=== PATIENT | female | born 1945 | race African-American/Black ===

== ENCOUNTER 2017-01-07 19:19 | Inpatient (IN) | payer MEDICARE, OTHER ==
[~2017-01-07] VITALS: Ht 160 cm; Wt 49.9 kg
[~2017-01-07 19:19] MED LIST: ALBU6.7H2 IH; AMLO10TA80 PO; BENA20TA77 PO; CITA20TA19 PO; FLUT1DIS3 IH; GLYPIZIDE PO; HYDR-519 PO; HYDROCHLOROTHIAZIDE PO; KEPPRA PO; LIP40 PO; Lactulose PO; METF10002 PO; MOME13HF2 INH; OXYC80TA40 PO; PROIN3 IH; TIOT18CA3 IH; [UNRECOGNIZED DRUG - REMARK] PO
[2017-01-07] MEDS ORDERED: MORPHINE SULFATE 4 MG/ML CPJ (NOT FOR IM USE) IV STA (20:52)
[2017-01-07] MEDS ORDERED: ONDANSETRON HCL 4MG/2ML VIAL IV STA (20:52)
[2017-01-07 21:16] LABS: HEMATOCRIT. 36.5 % (36.0-48.0); HEMOGLOBIN. 11.7 g/dL (12.0-16.0); MEAN CORPUSCULAR HEMOGLOBIN 25.3 pg (28.0-32.0); MEAN CORPUSCULAR VOLUME 79.2 fL (81.0-99.0); MEAN PLATELET VOLUME 7.7 fl (7.4-10.4); PLATELET 193 x1000/uL (130-400); RED CELL DISTRIBUTION WIDTH 14.7 % (11.6-14.6)
[2017-01-07 21:24] LABS: INR 1.1; PROTHROMBIN TIME 10.9 sec (9.4-11.6)
[2017-01-07 21:27] LABS: CARBON DIOXIDE 24 mEq/L (21-32); CHLORIDE 101 mEq/L (98-107)
[2017-01-07 21:33] LABS: TROPONIN I < 0.02 ng/mL (0.00-0.04)
[2017-01-07 22:20] LABS: PLATELET ESTIMATE NORMAL
[2017-01-07] MEDS ORDERED: KETOROLAC 15MG/ML VIAL IV ONE (23:00)
[2017-01-07] MEDS ORDERED: LORAZEPAM 2MG/ML CPJ IV ONE (23:00)
[2017-01-08 01:43] LABS: CLARITY URINE CLEAR (CLEAR); COLOR URINE YELLOW (YELLOW); GLUCOSE URINE NEGATIVE (NEGATIVE); KETONES URINE NEGATIVE (NEGATIVE); LEUKOCYTE ESTERASE URINE NEGATIVE (NEGATIVE); NITRITE URINE NEGATIVE (NEGATIVE); OCCULT BLOOD URINE NEGATIVE (NEGATIVE); PH URINE 5.5 (4.5-8.0); PROTEIN URINE NEGATIVE (NEGATIVE); SPECIFIC GRAVITY URINE 1.015 (1.005-1.030); UROBILINOGEN URINE 0.2 E.U./dL (0.2-1.0)
[2017-01-08 03:40] VITALS: BP 179/79
[2017-01-08] MEDS ORDERED: ACETAMINOPHEN 650MG/20.3ML UDC PO PRN ×2 (05:30→06:30)
[2017-01-08] MEDS ORDERED: CLONIDINE 0.1MG TABLET PO PRN (05:30)
[2017-01-08] MEDS ORDERED: DEXTROSE 50% WATER 50ML SYRINGE IV PRN (05:45)
[2017-01-08 06:00] VITALS: BP 179/79
[2017-01-08] MEDS: BLOOD SUGAR DIAGNOSTIC STRIP TEST SCH ×4 (06:44→21:10)
[2017-01-08 08:00] VITALS: BP 102/62
[2017-01-08] MEDS ORDERED: KEPPRA 500 MG PO SCH (09:00)
[2017-01-08] MEDS: BENAZEPRIL 20MG TABLET PO SCH (09:00)
[2017-01-08] MEDS ORDERED: MEDICATION NOT ON FORMULARY EA (Fluticasone/Salmeterol (Advair 250-50 Diskus) 1 DISK) IH SCH (09:00)
[2017-01-08] MEDS: AMLODIPINE 10MG TABLET PO SCH (09:00)
[2017-01-08] MEDS: BUDESONIDE 0.5MG/2ML NEB HHN SCH (09:03)
[2017-01-08] MEDS: ACETAMINOPHEN 650MG/20.3ML UDC PO PRN ×3 (09:22→23:37)
[2017-01-08] MEDS: LEVETIRACETAM 500MG TABLET PO SCH ×2 (09:24→17:58)
[2017-01-08] MEDS: METFORMIN HCL 500MG TABLET PO SCH ×2 (09:24→17:58)
[2017-01-08] MEDS: CITALOPRAM HYDROBROMIDE 20MG TABLET PO SCH (09:24)
[2017-01-08] MEDS: ENOXAPARIN 40MG/0.4ML SYR SUBCUT SCH (09:25)
[2017-01-08 12:00] VITALS: BP 100/61
[2017-01-08] MEDS: INSULIN LISPRO 100 UNITS/ML SUBCUT SCH ×3 (12:15→21:00)
[2017-01-08] MEDS ORDERED: FILGRASTIM 300 MCG/ML VIAL SUBCUT NR (14:00)
[2017-01-08 16:00] VITALS: BP 124/66
[2017-01-08 20:00] VITALS: BP 153/77
[2017-01-08] MEDS: ATORVASTATIN CALCIUM 40MG TABLET PO SCH (21:06)
[2017-01-08] MEDS: HYDROCODONE/ACETAMINOPHEN 10/325MG TABLET PO PRN (23:45)
[2017-01-09] VITALS: BP 136/76
[2017-01-09] LABS: *AMPHETAMINES SCREEN URINE NEGATIVE (NEGATIVE); *BARBITURATES SCREEN URINE NEGATIVE (NEGATIVE); *BENZODIAZEPINES SCREEN URINE NEGATIVE (NEGATIVE); *COCAINE SCREEN URINE PRESUMTIVE POSITIVE (NEGATIVE); CANNABINOID URINE SCREEN PRESUMTIVE POSITIVE (NEGATIVE); METHADONE URINE SCREEN NEGATIVE (NEGATIVE); OPIATES URINE SCREEN PRESUMTIVE POSITIVE (NEGATIVE); PHENCYCLIDINE URINE SCREEN NEGATIVE (NEGATIVE)
[2017-01-09] MEDS: ALBUTEROL (0.083%) 2.5MG/3ML NEB HHN SCH ×4 (03:08→20:49)
[2017-01-09 04:00] VITALS: BP 131/102
[2017-01-09 06:27] LABS: BASOPHILS % 0.3 % (0.0-2.0); EOSINOPHILS % 0.1 % (0.0-5.0); HEMATOCRIT. 29.8 % (36.0-48.0); HEMOGLOBIN. 9.6 g/dL (12.0-16.0); LYMPHOCYTES % 11.3 % (20.0-50.0); MEAN CORPUSCULAR HEMOGLOBIN 25.2 pg (28.0-32.0); MEAN CORPUSCULAR VOLUME 78.3 fL (81.0-99.0); MEAN PLATELET VOLUME 8.3 fl (7.4-10.4); MONOCYTES % 8.4 % (2.0-8.0); NEUTROPHILS % 79.9 % (40.0-76.0); PLATELET 168 x1000/uL (130-400); RED CELL DISTRIBUTION WIDTH 14.3 % (11.6-14.6)
[2017-01-09] MEDS: METFORMIN HCL 500MG TABLET PO SCH ×2 (06:36→17:56)
[2017-01-09] MEDS: BLOOD SUGAR DIAGNOSTIC STRIP TEST SCH ×4 (06:39→20:11)
[2017-01-09] MEDS: INSULIN LISPRO 100 UNITS/ML SUBCUT SCH ×4 (06:40→20:11)
[2017-01-09 07:13] LABS: CARBON DIOXIDE 26 mEq/L (21-32); CHLORIDE 99 mEq/L (98-107); CREATINE KINASE 144 IU/L (26-192); CREATINE KINASE MB FRACTION 1.2 ng/mL (0.5-3.6); HDL CHOLESTEROL 64 mg/dL (40-59); LDL CHOLESTEROL 82 mg/dL (5-100); TROPONIN I < 0.02 ng/mL (0.00-0.04)
[2017-01-09 08:00] VITALS: BP 142/73
[2017-01-09] MEDS: LEVETIRACETAM 500MG TABLET PO SCH ×2 (08:38→17:56)
[2017-01-09] MEDS: ENOXAPARIN 40MG/0.4ML SYR SUBCUT SCH (08:38)
[2017-01-09] MEDS: CITALOPRAM HYDROBROMIDE 20MG TABLET PO SCH (08:38)
[2017-01-09] MEDS: HYDROCODONE/ACETAMINOPHEN 10/325MG TABLET PO PRN ×2 (08:39→20:10)
[2017-01-09] MEDS: AMLODIPINE 10MG TABLET PO SCH (08:40)
[2017-01-09] MEDS: BENAZEPRIL 20MG TABLET PO SCH (08:40)
[2017-01-09 11:41] LABS: HEPATITIS B SURFACE ANTIGEN NEGATIVE
[2017-01-09 12:00] VITALS: BP 136/72
[2017-01-09 12:09] LABS: HEPATITIS B CORE AB IGM NEGATIVE
[2017-01-09 12:11] LABS: HEPATITIS A AB IGM NEGATIVE (NEGATIVE)
[2017-01-09] MEDS ORDERED: IOHEXOL-350 100 ML BOTTLE ONE (12:18)
[2017-01-09] MEDS: LEVOTHYROXINE SODIUM 50MCG TABLET PO SCH (13:00)
[2017-01-09 16:00] VITALS: BP 127/65
[2017-01-09] MEDS: LOSARTAN POTASSIUM 25 MG TABLET PO SCH (17:56)
[2017-01-09 20:00] VITALS: BP 112/61
[2017-01-09] MEDS: ATORVASTATIN CALCIUM 40MG TABLET PO SCH (20:06)
[2017-01-09] MEDS: BUDESONIDE 0.5MG/2ML NEB HHN SCH (20:50)
[2017-01-10] VITALS: BP 118/76
[2017-01-10] MEDS: ALBUTEROL (0.083%) 2.5MG/3ML NEB HHN SCH ×4 (02:00→21:15)
[2017-01-10 04:00] VITALS: BP 113/57
[2017-01-10] MEDS: LEVOTHYROXINE SODIUM 50MCG TABLET PO SCH (06:26)
[2017-01-10] MEDS: METFORMIN HCL 500MG TABLET PO SCH ×2 (06:26→17:44)
[2017-01-10] MEDS: BLOOD SUGAR DIAGNOSTIC STRIP TEST SCH ×4 (06:28→20:42)
[2017-01-10] MEDS: INSULIN LISPRO 100 UNITS/ML SUBCUT SCH ×4 (06:29→20:42)
[2017-01-10 07:47] LABS: HEMATOCRIT 27.4 % (36.0-48.0); HEMOGLOBIN 8.6 g/dL (12.0-16.0); MEAN CORPUSCULAR HEMOGLOBIN 24.8 pg (28.0-32.0); MEAN CORPUSCULAR VOLUME 78.8 fL (81.0-99.0); PLATELET 177 x1000/uL (130-400); RED BLOOD CELL COUNT 3.48 mill/uL (4.2-5.4); RED CELL DISTRIBUTION WIDTH 14.5 % (11.6-14.6)
[2017-01-10] MEDS: BUDESONIDE 0.5MG/2ML NEB HHN SCH (07:59)
[2017-01-10 08:00] VITALS: BP 120/55
[2017-01-10 08:16] LABS: CARBON DIOXIDE 27 mEq/L (21-32); CHLORIDE 98 mEq/L (98-107)
[2017-01-10] MEDS: LOSARTAN POTASSIUM 25 MG TABLET PO SCH (08:31)
[2017-01-10] MEDS: AMLODIPINE 10MG TABLET PO SCH (08:41)
[2017-01-10] MEDS: LEVETIRACETAM 500MG TABLET PO SCH ×2 (08:41→17:44)
[2017-01-10] MEDS: BENAZEPRIL 20MG TABLET PO SCH (08:41)
[2017-01-10] MEDS: CITALOPRAM HYDROBROMIDE 20MG TABLET PO SCH (08:41)
[2017-01-10] MEDS: HYDROCODONE/ACETAMINOPHEN 10/325MG TABLET PO PRN (08:42)
[2017-01-10 12:00] VITALS: BP 116/59
[2017-01-10] MEDS: MORPHINE SULFATE 4 MG/ML CPJ (NOT FOR IM USE) IV PRN ×3 (12:49→22:41)
[2017-01-10] MEDS: ENOXAPARIN 40MG/0.4ML SYR SUBCUT SCH ×2 (12:49→17:44)
[2017-01-10 14:38] LABS: T4 FREE 0.44 ng/dL (0.76-1.46)
[2017-01-10 16:00] VITALS: BP 113/55
[2017-01-10 20:00] VITALS: BP 135/62
[2017-01-10] MEDS: ATORVASTATIN CALCIUM 40MG TABLET PO SCH (20:39)
[2017-01-11] VITALS: BP 102/60
[2017-01-11 04:00] VITALS: BP 113/59
[2017-01-11] MEDS: MORPHINE SULFATE 4 MG/ML CPJ (NOT FOR IM USE) IV PRN ×2 (04:14→22:29)
[2017-01-11] MEDS: INSULIN LISPRO 100 UNITS/ML SUBCUT SCH ×4 (06:01→21:00)
[2017-01-11] MEDS: BLOOD SUGAR DIAGNOSTIC STRIP TEST SCH ×4 (06:01→20:59)
[2017-01-11] MEDS: LEVOTHYROXINE SODIUM 50MCG TABLET PO SCH (06:02)
[2017-01-11] MEDS: METFORMIN HCL 500MG TABLET PO SCH ×2 (06:33→18:35)
[2017-01-11 06:45] LABS: HEMATOCRIT 28.9 % (36.0-48.0); HEMOGLOBIN 9.2 g/dL (12.0-16.0); MEAN CORPUSCULAR HEMOGLOBIN 25.1 pg (28.0-32.0); MEAN CORPUSCULAR VOLUME 78.7 fL (81.0-99.0); PLATELET 184 x1000/uL (130-400); RED BLOOD CELL COUNT 3.67 mill/uL (4.2-5.4); RED CELL DISTRIBUTION WIDTH 14.5 % (11.6-14.6)
[2017-01-11] MEDS: ALBUTEROL (0.083%) 2.5MG/3ML NEB HHN SCH ×3 (08:00→20:24)
[2017-01-11 08:26] LABS: CARBON DIOXIDE 29 mEq/L (21-32); CHLORIDE 99 mEq/L (98-107)
[2017-01-11] MEDS ORDERED: PROPOFOL 200MG/20ML VIAL IV ONE (08:32)
[2017-01-11] MEDS ORDERED: LIDOCAINE HCL 1% 20ML VIAL (Pyxis) INJ ONE (08:33)
[2017-01-11] MEDS ORDERED: MIDAZOLAM HCL 2 MG/2 ML VIAL ONE (08:33)
[2017-01-11] MEDS ORDERED: FENTANYL CITRATE/PF 50MCG/ML 2ML VIAL ONE (08:33)
[2017-01-11] MEDS: LOSARTAN POTASSIUM 25 MG TABLET PO SCH (09:00)
[2017-01-11] MEDS: BUDESONIDE 0.5MG/2ML NEB HHN SCH (09:00)
[2017-01-11] MEDS: BENAZEPRIL 20MG TABLET PO SCH (09:00)
[2017-01-11] MEDS ORDERED: CLINDAMYCIN 900 MG in DEXTROSE 5% WATER 50 ML IV ONE (09:00)
[2017-01-11] MEDS: AMLODIPINE 10MG TABLET PO SCH (09:00)
[2017-01-11] MEDS: CITALOPRAM HYDROBROMIDE 20MG TABLET PO SCH (09:00)
[2017-01-11] MEDS: LEVETIRACETAM 500MG TABLET PO SCH ×2 (09:00→17:37)
[2017-01-11] MEDS ORDERED: NORMAL SALINE 0.9% 10 ML SYR ONE (09:08)
[2017-01-11] MEDS ORDERED: BACITRACIN ZINC 15GM TUBE TOP ONE (09:08)
[2017-01-11] MEDS ORDERED: VANCOMYCIN HCL 500 MG/VIAL ONE (09:08)
[2017-01-11] MEDS ORDERED: BACITRACIN 50,000 UNITS/VIAL ONE (09:08)
[2017-01-11] MEDS ORDERED: ONDANSETRON HCL 4MG/2ML VIAL IV PRN ×2 (09:15→14:45)
[2017-01-11] MEDS ORDERED: EPHEDRINE SULFATE 50MG/ML VIAL ONE (10:14)
[2017-01-11] MEDS ORDERED: PHENYLEPHRINE HCL 10 MG/ML 1ML (IV VIAL) IV ONE (10:14)
[2017-01-11] MEDS: FENTANYL CITRATE/PF 50MCG/ML 2ML VIAL IV PRN ×2 (11:38→11:46)
[2017-01-11] MEDS: HYDROMORPHONE HCL/PF 2MG/ML CPJ IV PRN ×2 (11:53→12:06)
[2017-01-11] MEDS ORDERED: HYDROCODONE/ACETAMINOPHEN 5/325MG TABLET PO PRN (14:45)
[2017-01-11 16:00] VITALS: BP 105/58
[2017-01-11] MEDS: CLINDAMYCIN 600 MG in DEXTROSE 5% WATER 50 ML IV SCH (17:36)
[2017-01-11] MEDS: HYDROCODONE/ACETAMINOPHEN 10/325MG TABLET PO PRN (17:37)
[2017-01-11 20:00] VITALS: BP 97/62
[2017-01-11] MEDS: ATORVASTATIN CALCIUM 40MG TABLET PO SCH (21:14)
[2017-01-12] VITALS (7 sets, daily range): BP systolic 108–137; BP diastolic 53–77
[2017-01-12] MEDS: CLINDAMYCIN 600 MG in DEXTROSE 5% WATER 50 ML IV SCH (02:18)
[2017-01-12] MEDS: ALBUTEROL (0.083%) 2.5MG/3ML NEB HHN SCH ×4 (02:40→21:53)
[2017-01-12] MEDS: LEVOTHYROXINE SODIUM 50MCG TABLET PO SCH (06:28)
[2017-01-12] MEDS: INSULIN LISPRO 100 UNITS/ML SUBCUT SCH ×4 (06:29→21:00)
[2017-01-12] MEDS: BLOOD SUGAR DIAGNOSTIC STRIP TEST SCH ×4 (06:29→21:34)
[2017-01-12] MEDS: MORPHINE SULFATE 4 MG/ML CPJ (NOT FOR IM USE) IV PRN ×3 (06:37→19:17)
[2017-01-12 06:52] LABS: HEMATOCRIT 21.6 % (36.0-48.0); MEAN CORPUSCULAR HEMOGLOBIN 25.2 pg (28.0-32.0); MEAN CORPUSCULAR VOLUME 78.4 fL (81.0-99.0); PLATELET 174 x1000/uL (130-400); RED BLOOD CELL COUNT 2.75 mill/uL (4.2-5.4); RED CELL DISTRIBUTION WIDTH 14.5 % (11.6-14.6)
[2017-01-12 07:01] LABS: HEMOGLOBIN 6.9 g/dL (12.0-16.0)
[2017-01-12 07:33] LABS: CARBON DIOXIDE 25 mEq/L (21-32); CHLORIDE 100 mEq/L (98-107)
[2017-01-12] MEDS: ENOXAPARIN 40MG/0.4ML SYR SUBCUT SCH (09:00)
[2017-01-12] MEDS: METFORMIN HCL 500MG TABLET PO SCH ×2 (09:08→17:15)
[2017-01-12] MEDS: LEVETIRACETAM 500MG TABLET PO SCH ×2 (09:08→18:04)
[2017-01-12] MEDS: LOSARTAN POTASSIUM 25 MG TABLET PO SCH (09:08)
[2017-01-12] MEDS: CITALOPRAM HYDROBROMIDE 20MG TABLET PO SCH (09:08)
[2017-01-12] MEDS: AMLODIPINE 10MG TABLET PO SCH (09:08)
[2017-01-12] MEDS: BENAZEPRIL 20MG TABLET PO SCH (09:09)
[2017-01-12 20:26] LABS: BASOPHILS % 0.1 % (0.0-2.0); EOSINOPHILS % 0.3 % (0.0-5.0); HEMATOCRIT. 26.9 % (36.0-48.0); HEMOGLOBIN. 9.1 g/dL (12.0-16.0); LYMPHOCYTES % 11.3 % (20.0-50.0); MEAN CORPUSCULAR HEMOGLOBIN 27.1 pg (28.0-32.0); MEAN CORPUSCULAR VOLUME 80.6 fL (81.0-99.0); MEAN PLATELET VOLUME 7.3 fl (7.4-10.4); MONOCYTES % 13.3 % (2.0-8.0); PLATELET 160 x1000/uL (130-400); RED BLOOD CELL COUNT 3.34 mill/uL (4.2-5.4)
[2017-01-12] MEDS: ATORVASTATIN CALCIUM 40MG TABLET PO SCH (21:34)
[2017-01-13] VITALS (7 sets, daily range): BP systolic 107–131; BP diastolic 56–67
[2017-01-13] MEDS: MORPHINE SULFATE 4 MG/ML CPJ (NOT FOR IM USE) IV PRN ×2 (01:16→05:37)
[2017-01-13] MEDS: ALBUTEROL (0.083%) 2.5MG/3ML NEB HHN SCH ×4 (02:46→20:41)
[2017-01-13] MEDS: LEVOTHYROXINE SODIUM 50MCG TABLET PO SCH (05:37)
[2017-01-13] MEDS: BLOOD SUGAR DIAGNOSTIC STRIP TEST SCH ×4 (06:21→20:44)
[2017-01-13] MEDS: INSULIN LISPRO 100 UNITS/ML SUBCUT SCH ×4 (06:21→20:44)
[2017-01-13] MEDS: METFORMIN HCL 500MG TABLET PO SCH ×2 (07:15→19:11)
[2017-01-13] MEDS: AMLODIPINE 10MG TABLET PO SCH (10:37)
[2017-01-13] MEDS: LEVETIRACETAM 500MG TABLET PO SCH ×2 (10:37→17:16)
[2017-01-13] MEDS: BENAZEPRIL 20MG TABLET PO SCH (10:37)
[2017-01-13] MEDS: CITALOPRAM HYDROBROMIDE 20MG TABLET PO SCH (10:37)
[2017-01-13] MEDS: LOSARTAN POTASSIUM 25 MG TABLET PO SCH (10:38)
[2017-01-13] MEDS: MORPHINE SULFATE 2 MG/ML CPJ (NOT FOR IM USE) IV PRN ×3 (12:12→21:31)
[2017-01-13] MEDS: ATORVASTATIN CALCIUM 40MG TABLET PO SCH (20:43)
[2017-01-14] MEDS: ALBUTEROL (0.083%) 2.5MG/3ML NEB HHN SCH ×4 (03:12→19:40)
[2017-01-14 04:00] VITALS: BP 118/62
[2017-01-14] MEDS: MORPHINE SULFATE 2 MG/ML CPJ (NOT FOR IM USE) IV PRN ×4 (04:33→22:14)
[2017-01-14] MEDS: BLOOD SUGAR DIAGNOSTIC STRIP TEST SCH ×4 (06:28→21:51)
[2017-01-14] MEDS: LEVOTHYROXINE SODIUM 50MCG TABLET PO SCH (06:28)
[2017-01-14] MEDS: INSULIN LISPRO 100 UNITS/ML SUBCUT SCH ×4 (07:50→21:00)
[2017-01-14 08:00] VITALS: BP 115/65
[2017-01-14] MEDS: METFORMIN HCL 500MG TABLET PO SCH ×2 (08:40→16:59)
[2017-01-14] MEDS: BENAZEPRIL 20MG TABLET PO SCH (08:41)
[2017-01-14] MEDS: AMLODIPINE 10MG TABLET PO SCH (08:41)
[2017-01-14] MEDS: CITALOPRAM HYDROBROMIDE 20MG TABLET PO SCH (08:41)
[2017-01-14] MEDS: LOSARTAN POTASSIUM 25 MG TABLET PO SCH (08:41)
[2017-01-14] MEDS: LEVETIRACETAM 500MG TABLET PO SCH ×2 (08:41→16:59)
[2017-01-14 12:00] VITALS: BP 102/57
[2017-01-14] MEDS: ENOXAPARIN 40MG/0.4ML SYR SUBCUT SCH (12:12)
[2017-01-14 15:44] VITALS: BP 105/61
[2017-01-14 20:00] VITALS: BP 122/62
[2017-01-14] MEDS: ATORVASTATIN CALCIUM 40MG TABLET PO SCH (21:53)
[2017-01-15] VITALS: BP 110/64
[2017-01-15] MEDS: ALBUTEROL (0.083%) 2.5MG/3ML NEB HHN SCH ×4 (02:18→20:26)
[2017-01-15] MEDS: MORPHINE SULFATE 2 MG/ML CPJ (NOT FOR IM USE) IV PRN ×2 (03:28→11:20)
[2017-01-15 04:00] VITALS: BP 112/65
[2017-01-15] MEDS: LEVOTHYROXINE SODIUM 50MCG TABLET PO SCH (06:27)
[2017-01-15 07:11] LABS: HEMATOCRIT. 26.6 % (36.0-48.0); HEMOGLOBIN. 8.7 g/dL (12.0-16.0); MEAN CORPUSCULAR HEMOGLOBIN 26.5 pg (28.0-32.0); MEAN CORPUSCULAR VOLUME 81.1 fL (81.0-99.0); PLATELET 214 x1000/uL (130-400); RED BLOOD CELL COUNT 3.29 mill/uL (4.2-5.4); RED CELL DISTRIBUTION WIDTH 15.1 % (11.6-14.6)
[2017-01-15] MEDS: INSULIN LISPRO 100 UNITS/ML SUBCUT SCH ×4 (07:50→21:00)
[2017-01-15 07:56] LABS: CARBON DIOXIDE 31 mEq/L (21-32); CHLORIDE 97 mEq/L (98-107)
[2017-01-15] MEDS: BLOOD SUGAR DIAGNOSTIC STRIP TEST SCH ×4 (07:56→21:59)
[2017-01-15 08:00] VITALS: BP 110/60
[2017-01-15] MEDS: AMLODIPINE 10MG TABLET PO SCH (10:08)
[2017-01-15] MEDS: ENOXAPARIN 40MG/0.4ML SYR SUBCUT SCH (10:10)
[2017-01-15] MEDS: METFORMIN HCL 500MG TABLET PO SCH ×2 (10:11→18:06)
[2017-01-15] MEDS: LOSARTAN POTASSIUM 25 MG TABLET PO SCH (10:11)
[2017-01-15] MEDS: LEVETIRACETAM 500MG TABLET PO SCH ×2 (10:11→18:06)
[2017-01-15] MEDS: BENAZEPRIL 20MG TABLET PO SCH (10:11)
[2017-01-15] MEDS: CITALOPRAM HYDROBROMIDE 20MG TABLET PO SCH (10:11)
[2017-01-15 10:52] LABS: PLATELET ESTIMATE NORMAL
[2017-01-15 12:00] VITALS: BP 99/51
[2017-01-15 16:00] VITALS: BP 131/41
[2017-01-15 20:00] VITALS: BP 92/50
[2017-01-15] MEDS: ATORVASTATIN CALCIUM 40MG TABLET PO SCH (21:59)
[2017-01-16] VITALS (7 sets, daily range): BP systolic 91–103; BP diastolic 52–70
[2017-01-16] MEDS: ALBUTEROL (0.083%) 2.5MG/3ML NEB HHN SCH ×4 (01:03→21:56)
[2017-01-16] MEDS: MORPHINE SULFATE 2 MG/ML CPJ (NOT FOR IM USE) IV PRN (01:39)
[2017-01-16] MEDS: BLOOD SUGAR DIAGNOSTIC STRIP TEST SCH ×4 (07:20→21:18)
[2017-01-16] MEDS: LEVOTHYROXINE SODIUM 50MCG TABLET PO SCH (07:20)
[2017-01-16] MEDS: INSULIN LISPRO 100 UNITS/ML SUBCUT SCH ×4 (07:50→21:00)
[2017-01-16] MEDS: HYDROCODONE/ACETAMINOPHEN 10/325MG TABLET PO PRN ×3 (08:53→21:35)
[2017-01-16] MEDS: LOSARTAN POTASSIUM 25 MG TABLET PO SCH (09:00)
[2017-01-16] MEDS: AMLODIPINE 10MG TABLET PO SCH (09:51)
[2017-01-16] MEDS: LEVETIRACETAM 500MG TABLET PO SCH ×2 (09:51→18:04)
[2017-01-16] MEDS: METFORMIN HCL 500MG TABLET PO SCH ×2 (09:51→18:07)
[2017-01-16] MEDS: CITALOPRAM HYDROBROMIDE 20MG TABLET PO SCH (09:51)
[2017-01-16] MEDS: BENAZEPRIL 20MG TABLET PO SCH (09:52)
[2017-01-16] MEDS: ENOXAPARIN 40MG/0.4ML SYR SUBCUT SCH (09:54)
[2017-01-16] MEDS ORDERED: HYDROCODONE/ACETAMINOPHEN 5/325MG TABLET PO PRN (18:00)
[2017-01-16] MEDS: ATORVASTATIN CALCIUM 40MG TABLET PO SCH (21:18)
[2017-01-17] VITALS (7 sets, daily range): BP systolic 90–106; BP diastolic 49–57
[2017-01-17] MEDS: HYDROCODONE/ACETAMINOPHEN 10/325MG TABLET PO PRN ×2 (01:48→17:37)
[2017-01-17] MEDS: ALBUTEROL (0.083%) 2.5MG/3ML NEB HHN SCH ×3 (04:32→13:15)
[2017-01-17] MEDS: LEVOTHYROXINE SODIUM 50MCG TABLET PO SCH (07:10)
[2017-01-17] MEDS: BLOOD SUGAR DIAGNOSTIC STRIP TEST SCH ×3 (07:15→17:21)
[2017-01-17] MEDS: INSULIN LISPRO 100 UNITS/ML SUBCUT SCH ×3 (07:16→17:21)
[2017-01-17] MEDS: CITALOPRAM HYDROBROMIDE 20MG TABLET PO SCH (08:27)
[2017-01-17] MEDS: METFORMIN HCL 500MG TABLET PO SCH ×2 (08:27→17:13)
[2017-01-17] MEDS: LEVETIRACETAM 500MG TABLET PO SCH ×2 (08:27→17:13)
[2017-01-17] MEDS: ENOXAPARIN 40MG/0.4ML SYR SUBCUT SCH (08:28)
[2017-01-17] MEDS: AMLODIPINE 10MG TABLET PO SCH (08:29)
[2017-01-17] MEDS: LOSARTAN POTASSIUM 25 MG TABLET PO SCH (08:29)
[2017-01-17] MEDS: BENAZEPRIL 20MG TABLET PO SCH (08:30)
== END 2017-01-17 18:51 | DRG 308 ==
LOC: ER 20:47 → 5WST 01-08 01:07 → ENRESERV 01-08 01:18 → EDBEDREQ 01-08 01:22 → EDBEDREQTM 01-08 01:22 → 5WST 01-08 23:24 → 6EST 01-13 22:45
PROVIDERS: ADMIT Internal Medicine; ATTEND Internal Medicine
PROC: 0QS636Z Reposition Right Upper Femur with Intramedullary Internal Fixation Device, Percutaneous Approach (ICD-10-PCS; principal; 2017-01-11 12:00)
PROC: 30233N1 Transfusion of Nonautologous Red Blood Cells into Peripheral Vein, Percutaneous Approach (ICD-10-PCS; 2017-01-12)
DX: S72.141A Displaced intertrochanteric fracture of right femur, initial encounter for closed fracture (principal); D68.9 Coagulation defect, unspecified; I11.0 Hypertensive heart disease with heart failure; R16.1 Splenomegaly, not elsewhere classified; I69.354 Hemiplegia and hemiparesis following cerebral infarction affecting left non-dominant side; I50.9 Heart failure, unspecified; J44.9 Chronic obstructive pulmonary disease, unspecified; K74.60 Unspecified cirrhosis of liver; B19.20 Unspecified viral hepatitis C without hepatic coma; D63.8 Anemia in other chronic diseases classified elsewhere; C73 Malignant neoplasm of thyroid gland; D72.819 Decreased white blood cell count, unspecified; W18.30XA Fall on same level, unspecified, initial encounter; G40.909 Epilepsy, unspecified, not intractable, without status epilepticus; E03.9 Hypothyroidism, unspecified; E10.9 Type 1 diabetes mellitus without complications; M19.90 Unspecified osteoarthritis, unspecified site; E78.00 Pure hypercholesterolemia, unspecified; F12.90 Cannabis use, unspecified, uncomplicated; Z88.0 Allergy status to penicillin; Z92.21 Personal history of antineoplastic chemotherapy; Z86.718 Personal history of other venous thrombosis and embolism; Z85.850 Personal history of malignant neoplasm of thyroid; Z79.899 Other long term (current) drug therapy; Z79.4 Long term (current) use of insulin; Y92.009 Unspecified place in unspecified non-institutional (private) residence as the place of occurrence of the external cause; Z79.01 Long term (current) use of anticoagulants; Z82.49 Family history of ischemic heart disease and other diseases of the circulatory system; Y93.89 Activity, other specified; Y99.8 Other external cause status
CPT/HCPCS: 36415; 51702; 71010; 71275; 72192; 73502; 73552; 76000; 80048; 80053; 80061; 80305; 81003; 82550; 82553; 82962; 83690; 83735; 83880; 84439; 84443; 84481; 84484; 85025; 85027; 85379; 85610; 86705; 86709; 86803; 86850; 86900; 86920; 87040; 87086; 87186; 87340; 93005; 93306; 93970; 94640; 96374; 96375; 97110; 97116; 97163; 97530; 99285; A4216; A6261; C1713; C1893; J0171; J1170; J1442; J1650; J1885; J2060; J2250; J2270; J2370; J2405; J2704; J3010; J3370; J3490; J7050; J7060; J7611; J7626; P9016; Q9967; A4315